=== PATIENT | male | born 2005 | race Hispanic/Latino ===

== ENCOUNTER 2024-01-22 02:18 | Emergency (ER) | payer OTHER ==
[2024-01-22] MEDS ORDERED: Bacitracin 1 PK ONE (03:11)
[2024-01-22] MEDS ORDERED: Ibuprofen 800 MG TAB ONE (03:11)
== END 2024-01-22 04:08 ==
LOC: NAV ERS 02:18
DX: S01.02XA Laceration with foreign body of scalp, initial encounter (principal); S30.0XXA Contusion of lower back and pelvis, initial encounter; I10 Essential (primary) hypertension; Y04.0XXA Assault by unarmed brawl or fight, initial encounter; Y92.149 Unspecified place in prison as the place of occurrence of the external cause
CPT/HCPCS: 12001; 70450; 70486; 72131